=== PATIENT | male | born 1940 | race Hispanic/Latino ===

== ENCOUNTER 2019-09-30 08:50 | Day surgery (SDC) | payer OTHER ==
[~2019-09-30 08:50] MED LIST: SODIUM CHLORIDE 0.9% 1000 ML 1,000 ML IV SCH
[2019-09-30] MEDS ORDERED: PROPOFOL 200 MG/20 ML VIAL IV ONE ×2 (10:37)
--- NOTE | 2019-09-30 11:30 | Procedure Note ---
Date of procedure: 09/30/19 Pre-op diagnosis: GERD/Colon Polyp Screening/F/H/O Cancer Post-op diagnosis: other (Moderate,Erosive Esophagitis/Gastritis/Gastric Nodule/Multiple,small Ascending Colon Polyps/Moderate,Left Colon Diverticular Disease/Minor,Internal Hemorrhoid) Procedure: EGD with Biopsy/ Colonoscopy with Cold Biopsy [place] [facility] [place]: ERIKA RUSS Estimated blood loss: minimal Pathology: list Specimen disposition: to lab Condition: stable Disposition: same day (Treat with PPI and Baclofen. Avoid aspirin and NSAID for 4 days; otherwise resume home medication and follow up in 1 to 2 weeks ([phone]).)
--- NOTE | 2019-09-30 11:54 | Operative Report ---
PROCEDURE: Esophagogastroduodenoscopy with biopsy. INDICATIONS: This is a 79-year-old white male who has been having some GERD symptoms. EGD was done to assess for the problem. DESCRIPTION OF PROCEDURE: Procedure was done after getting informed consent with MAC anesthesia. Instrument was passed through the hypopharynx into the esophagus, which showed some moderate erosive esophagitis. Photo documentation and biopsy was obtained. The stomach showed a gastric nodule in the proximal stomach, possibly a fundic gland polyp, which was removed by cold biopsy. Biopsy was also done from the gastric body, gastric antrum, and angular incisura to rule out for H. pylori and atrophic gastritis. The pylorus was patent. The duodenum in the first and the second portion appeared normal. ASSESSMENT: Gastroesophageal reflux disease symptoms, moderate erosive esophagitis, gastritis, gastric nodule. PLAN: To treat the patient with PPI and baclofen and to help minimize GERD symptoms, avoid aspirin and aspirin-related products for the next few days and follow up in the office in 1-2 weeks' time. The procedure was done in the GI lab with assistance of the GI lab team, which included RNDiana Regina and the assistance of Anesthesia. A colonoscopy will also be done for assessment as part of colon polyp screening. JOB# [id number] SACHIN/LUZMARIA
--- NOTE | 2019-09-30 11:57 | Operative Report ---
PROCEDURE: Colonoscopy with biopsy. INDICATIONS: The patient is a 79-year-old white male who had a colonoscopy done as part of colon polyp screening. He does have a family history of cancer. Both his parents have had cancer. He has a past history of prostate cancer and has a family history of cancer, namely brain tumor, which his father had. Colonoscopy was done to assess for any colon polyps. The procedure was done. This was done following the EGD, which showed esophagitis, gastritis and gastric nodule, possibly a fundic gland nodule. PROCEDURE IN DETAIL: Colonoscopy was done after getting informed consent with MAC anesthesia. Initial rectal exam was unremarkable. Instrument was passed through the rectum onto the cecum, which was identified by the ileocecal valve and the appendiceal orifice. Visualization was fair. The terminal ileum was intubated showed normal mucosa. The cecum showed normal mucosa. In the ascending colon, there were 3 small polyps about 7-8 mm in diameter that were removed by cold biopsy. There was minimal bleeding from the polypectomy sites. The remaining part of the transverse colon showed normal mucosa. There were a few scattered diverticula noted in the distal transverse colon and also there were moderate diverticula noted in the left colon and the rectum showed some minor internal hemorrhoid on the retroverted view. Again, there was minimal bleeding associated with the polypectomy, but no complications associated with the procedure. Procedure was done in the GI lab with assistance of the GI lab team, which included RNDiana, Germania garcia, and with assistance of anesthesia. ASSESSMENT: Colon polyp screening, multiple ascending colon polyps noted. Moderate left colon diverticular disease, minor internal hemorrhoids. The patient will be encouraged to take fiber supplements, avoid aspirin and aspirin-related products for the next few days. She will be treated with PPI and baclofen because of the EGD findings of esophagitis and gastritis, and to resume previous medication except for aspirin and aspirin-related products should be held for 4 days and follow up in the office in 1-2 weeks' time. JOB# [id number] SACHIN/LUZMARIA
[2019-09-30 12:06] VITALS: BP 104/71
--- NOTE | 2019-09-30 14:55 | Anesthesia Consultation ---
Anesthesia Consult and Med Hx Date of service: 09/30/19 - Airway Anesthetic Teeth Evaluation: Poor ROM Head & Neck: Adequate Mental/Hyoid Distance: Adequate Mallampati Class: Class II Intubation Access Assessment: Good - Pulmonary Exam CTA: Yes - Cardiac Exam Cardiac Exam: RRR - Pre-Operative Health Status ASA Pre-Surgery Classification: ASA2 Proposed Anesthetic Plan: MAC - Cardiovascular System Hx Hypertension: Yes - Other Systems Hx Cancer: Yes
--- NOTE | 2019-09-30 14:56 | Anesthesia Day of Surgery ---
Anesthesia Day of Surgery - Day of Surgery Patient Examined: Yes Patient H&P Reviewed: Yes Patient is NPO: Yes
--- NOTE | 2019-09-30 14:56 | Post Anesthesia Evaluation ---
- Post Anesthesia Evaluation Patient Participated: Yes Airway Patent: Yes Stable Respiratory Function: Yes Nausea/Vomiting: No Temp > 96.8F: Yes Pain Manageable: Yes Adequeate Hydration: Yes Anesthesia Complications: No Block Receding Appropriately: Not Applicable Patient on Ventilator: No
[2019-09-30] MEDS ORDERED: LIDOCAINE MPF (2%) 20 MG/1 ML VIAL 5 ML ONE (19:30)
== END 2019-09-30 08:51 | disposition home or self-care (01) ==
LOC: GIO 08:50
DX: Z12.11 Encounter for screening for malignant neoplasm of colon (principal); K63.5 Polyp of colon; K21.0 Gastro-esophageal reflux disease with esophagitis; K57.30 Diverticulosis of large intestine without perforation or abscess without bleeding; K64.8 Other hemorrhoids; K31.89 Other diseases of stomach and duodenum; I10 Essential (primary) hypertension; Z80.0 Family history of malignant neoplasm of digestive organs; Z79.899 Other long term (current) drug therapy; Z85.46 Personal history of malignant neoplasm of prostate; Z98.890 Other specified postprocedural states
CPT/HCPCS: 43239; 45380; 88305; 88342; J2704; J7030